=== PATIENT | male | born 1965 | race American Indian/Alaskan Native ===

== ENCOUNTER 2018-10-10 14:56 | Emergency (ER) | payer OTHER ==
[~2018-10-10] VITALS: Ht 185.4 cm; Wt 61.2 kg
[2018-10-10 15:11] VITALS: BP 122/85; TEMP 98.8
== END 2018-10-10 16:32 | disposition home or self-care (01) ==
LOC: ED 14:56
PROC: 0HQGXZZ Repair Left Hand Skin, External Approach (ICD-10-PCS; principal; 2018-10-10)
DX: S61.211A Laceration without foreign body of left index finger without damage to nail, initial encounter (principal); W26.8XXA Contact with other sharp object(s), not elsewhere classified, initial encounter; Y92.89 Other specified places as the place of occurrence of the external cause
CPT/HCPCS: 90471; 90715; 96372; 99282; 99283; J7040